=== PATIENT | male | born 1960 | race Caucasian/White ===

== ENCOUNTER 2018-02-05 07:02 | Day surgery (SDC) | payer OTHER ==
[2018-02-02 11:53] VITALS: BMI 31.6
[~2018-02-05 07:02] MED LIST: LACTATED RINGERS 1,000 ML IV SCH
[2018-02-05] MEDS ORDERED: LACTATED RINGERS 1,000 ML IV ONE (07:22)
[2018-02-05 07:23] VITALS: RESP 18; TEMP 98
[2018-02-05] MEDS ORDERED: PROPOFOL 10 MG/ML 20 ML VIAL IV ONE (07:36)
[2018-02-05] MEDS ORDERED: MIDAZOLAM 2 MG/2 ML VIAL ONE (07:36)
[2018-02-05] MEDS ORDERED: fentaNYL (PF) 50 MCG/ML 2 ML AMP ONE (07:36)
--- NOTE | 2018-02-05 07:41 | P.GSHP ---
History of Present Illness H&P Date: 02/05/18 Chief Complaint: Colon cancer screening Patient here today for colonoscopy. He has not had one previously. No bowel related complaints. No family history of colon cancer. Past Medical History Past Medical History: Eye Disorder History of Any Multi-Drug Resistant Organisms: None Reported Past Surgical History: No Surgical Hx Reported Additional Past Anesthesia/Blood Transfusion Reaction / Comment(s): no anesthesia Smoking Status: Never smoker - Past Family History Mother Family Medical History: No Reported History Medications and Allergies Home Medications Medication Instructions Recorded Confirmed Type Brimonidine Tartrate [Alphagan P 1 drops BOTH EYES BID 02/02/18 02/05/18 History 0.1% Ophth Soln] Dorzolamide 2% [Trusopt 2%] 1 drops BOTH EYES BID 02/02/18 02/05/18 History Latanoprost Ophth [Xalatan 0.005%] 1 drops BOTH EYES HS 02/02/18 02/05/18 History acetaZOLAMIDE [Diamox] 500 mg PO DAILY 02/02/18 02/05/18 History Allergies Allergy/AdvReac Type Severity Reaction Status Date / Time No Known Allergies Allergy Verified 02/05/18 07:15 Surgical - Exam Vital Signs Temp Pulse Resp BP Pulse Ox 98.0 F 125 H 18 177/97 99 02/05/18 07:20 02/05/18 07:20 02/05/18 07:20 02/05/18 07:20 02/05/18 07:20 Physical exam: General: Well-developed, well-nourished HEENT: Normocephalic, sclerae nonicteric Abdomen: Nontender, nondistended Extremities: No edema Neuro: Alert and oriented Assessment and Plan (1) Colon cancer screening Narrative/Plan: Will proceed with colonoscopy Current Visit: Yes Status: Acute Code(s): Z12.11 - ENCOUNTER FOR SCREENING FOR MALIGNANT NEOPLASM OF COLON SNOMED Code(s): 414263150
--- NOTE | 2018-02-05 07:58 | P.PCN ---
Date of Procedure: 02/05/18 Procedure(s) Performed: PREOPERATIVE DIAGNOSIS: Colon cancer screening POSTOPERATIVE DIAGNOSIS: Small cecal polyp PROCEDURE: Colonoscopy with biopsy ANESTHESIA: MAC SURGEON: Rei Tabor M.D. SPECIMENS: Cecal polyp ENDOSCOPIC PROCEDURE: The patient was placed on the endoscopy table in the left decubitus position. The Olympus colonoscope was inserted into the anus and passed under direct visualization to the base of the cecum. The appendiceal orifice was visualized. From that point the scope was slowly withdrawn inspecting all surfaces carefully. At the base of the cecum adjacent to the appendiceal orifice there was a small raised portion of the mucosa that may have represented a adenomatous polyp. A cold biopsy was taken. This was small in size. The remainder of the cecum, ascending, transverse, descending, sigmoid and rectum appeared normal. There was no diverticulosis noted. Digital rectal examination was normal. The patient was taken to the recovery room in stable condition per anesthesia guidelines. RECOMMENDATIONS: Increase fiber. Await biopsy results.
[2018-02-05 08:20] VITALS: BP 116/54; PULSE 76
== END 2018-02-05 08:47 | disposition home or self-care (01) ==
LOC: ORWHC2ENDO 07:02
PROVIDERS: ATTEND Surgery
DX: Z12.11 Encounter for screening for malignant neoplasm of colon (principal); K63.5 Polyp of colon; Z79.899 Other long term (current) drug therapy
CPT/HCPCS: 88305; 45380; J2250; J3010; J2704

== ENCOUNTER 2024-02-16 12:28 | Day surgery (SDC) | payer MEDICARE, OTHER ==
[~2024-02-16 12:28] MED LIST changes: -LACTATED RINGERS 1,000 ML IV SCH; +LIDOCAINE 1% (10MG/ML) FOR IV START INTRADERMA PRN
[2024-02-16 13:04] VITALS: TEMP 97.3
[2024-02-16] MEDS: LACTATED RINGERS 1,000 ML IV SCH (13:15)
[2024-02-16] MEDS: IV FLUID CONTINUATION 1,000 ML IV ONE (13:15)
[2024-02-16] MEDS ORDERED: PROPOFOL 10 MG/ML 20 ML VIAL IV ONE (13:42)
[2024-02-16] MEDS ORDERED: LIDOCAINE 2% (PF) 20 MG/ML 5 ML VIAL ONE (13:42)
--- NOTE | 2024-02-16 14:05 | P.PCN ---
Date of Procedure: 02/16/24 Procedure(s) Performed: PREOPERATIVE DIAGNOSIS: Colon cancer screening POSTOPERATIVE DIAGNOSIS: Normal exam PROCEDURE: Colonoscopy ANESTHESIA: MAC SURGEON: Rei Tabor M.D. SPECIMENS: None ENDOSCOPIC PROCEDURE: The patient was placed on the endoscopy table in the left decubitus position. The Olympus colonoscope was inserted into the anus and passed under direct visualization to the base of the cecum. The appendiceal orifice was visualized. From that point the scope was slowly withdrawn inspecti ng all surfaces carefully. There were no neoplastic inflammatory or polypoid lesions throughout the cecum, ascending, transverse, descending, sigmoid and rectum. There was no visible diverticulosis noted. Digital rectal examination was normal. The patient was taken to the recovery room in stable condition per anesthesia guidelines. RECOMMENDATIONS: Resume diet. Follow-up colonoscopy 7 to 10 years.
[2024-02-16 14:15] VITALS: PULSE 73
[2024-02-16 14:24] VITALS: BP 116/77; RESP 16
== END 2024-02-16 14:40 | disposition home or self-care (01) ==
LOC: ORWHC2ENDO 12:28
PROVIDERS: ATTEND Surgery
DX: Z12.11 Encounter for screening for malignant neoplasm of colon (principal); I10 Essential (primary) hypertension; E78.5 Hyperlipidemia, unspecified; Z79.899 Other long term (current) drug therapy
CPT/HCPCS: J2704; J2001; G0121